=== PATIENT | male | born 1995 | race Caucasian/White ===

== ENCOUNTER 2023-11-28 00:15 | Emergency (ER) | payer SELFPAY ==
[2023-11-28] MEDS ORDERED: Ketorolac Tromethamine 30 MG (1 mL) VIAL ONE (00:34)
[2023-11-28] MEDS ORDERED: Famotidine/PF 20 mg/2ml Vial ONE (00:34)
[2023-11-28 00:48] LABS: #Basophils Less than 0.03 10x3/uL (0.0-0.2); %Basophils 0.7 % (0.0-1.0); %Eosinophils 4.7 % (0.0-10.0); %Lymphocytes 40.9 % (21.0-51.0); %Monocytes 7.3 % (0.0-10.0); %Neutrophils 46.4 % (42.0-75.0); Hematocrit 38.3 % (42.0-52.0); Hemoglobin 13.6 g/dL (14.0-18.0); Mean Corpuscular HGB CONC 35.5 g/dL (32.0-36.0); Mean Platelet Volume 8.3 fL (7.4-10.4); Platelet Count 288 10x3/uL (130-400); RBC Distribution Width 14.9 % (11.5-14.5); Red Blood Cell (RBC) Count 4.12 mill/uL (4.70-6.10)
[2023-11-28 01:02] LABS: Anion Gap 20 mmol/L (10-20); BUN (Urea Nitrogen) 8 mg/dL (8.9-20.6); Bilirubin, Total 0.4 mg/dL (0.2-1.2); Calc. Creatinine Clearance 0 mL/min (70-130); Calcium 8.8 mg/dL (7.8-10.44); Carbon Dioxide 21 mmol/L (22-29); Chloride 102 mmol/L (98-107); Estimated GFR 120; Globulin 3.8 g/dL (2.4-3.5); Glucose 111 mg/dL (70-105); Potassium 3.5 mmol/L (3.5-5.1); Protein, Total 7.8 g/dL (6.0-8.3); Sodium 139 mmol/L (136-145)
[2023-11-28 01:03] LABS: ALT (SGPT) 55 U/L (8-55); AST (SGOT) 47 U/L (5-34); Alkaline Phosphatase 76 U/L (40-110); Lipase 33 U/L (8-78); Magnesium 2.3 mg/dL (1.6-2.6)
[2023-11-28 01:08] LABS: Troponin I Less than 0.010 ng/mL (< 0.028)
== END 2023-11-28 03:20 | disposition home or self-care (01) ==
LOC: ERS 00:15 → EDBD 00:15 → ERS 03:20
DX: R07.89 Other chest pain (principal)
CPT/HCPCS: 36416; 71045; 80053; 83690; 83735; 84484; 85025; 93005; 96361; 96374; 96375; J1885; S0028